=== PATIENT | female | born 1980 | race Caucasian/White ===

== ENCOUNTER 2018-12-11 14:58 | Emergency (ER) | payer SELFPAY ==
[~2018-12-11] VITALS: Ht 165.1 cm; Wt 108.9 kg
[2018-12-11 15:02] VITALS: BP_SYST 146
--- NOTE | 2018-12-11 15:08 | NUR ---
Patient to ER bed 2 to gown for evaluation. Side rails up. Report given to TORRI Sotomayor.
--- NOTE | 2018-12-11 16:05 | NUR ---
ER Dr. Muñoz at bedside examining patient.
[2018-12-11] MEDS ORDERED: KETOROLAC TROMETHAMINE 60 MG/2 ML VIAL IM ONE (16:15)
--- NOTE | 2018-12-11 17:32 | NUR ---
Pt has no c/o pain and no tenderness to palpation at this time.
[2018-12-11 17:51] VITALS: BP_SYST 146
--- NOTE | 2018-12-11 17:51 | NUR ---
Patient given written and verbal discharge instructions and verbalizes understanding. ER MD discussed with patient the results and treatment provided. Patient in stable condition. ID arm band removed. No Rx given. Patient educated on pain management and to follow up with PMD. Pain Scale 3/10 tolerable for patient. Opportunity for questions provided and answered. Medication side effect fact sheet provided.
== END 2018-12-11 17:51 | disposition home or self-care (01) ==
LOC: SED 14:58
DX: M94.0 Chondrocostal junction syndrome [Tietze] (principal); R03.0 Elevated blood-pressure reading, without diagnosis of hypertension
CPT/HCPCS: 71045; 81025; 96372; 99283; J1885; 93005